=== PATIENT | male | born 1985 | race Caucasian/White ===

== ENCOUNTER 2019-09-09 16:39 | Emergency (ER) | payer MEDICAID ==
[~2019-09-09] VITALS: Ht 180.3 cm; Wt 72.0 kg
--- NOTE | 2019-09-09 16:58 | NUR ---
Pt reports lump on shaft of penis for one year with intermittent pain. Pt sees urology and has no diagnosis at this time. Pt denies penial discharge or blood in urine. Pt reports 10/10 penile pain. Pt resting on gurney connected to NIBP cuff and continous pulse ox monitor. Call light within reach. Pending EDMD to see.
[2019-09-09] MEDS ORDERED: HYDROcodone/APAP 5/325 TABLET ONE (17:45)
[2019-09-09] MEDS ORDERED: HYDROcodone/APAP 5/325 TABLET PO ONE (18:00)
--- NOTE | 2019-09-09 18:50 | NUR ---
Pt ambulates to restroom with steady gait and balance. NADN. No needs expressed. UA cup provided. Pt reports pain is 8/10 at this time.
--- NOTE | 2019-09-09 18:56 | NUR ---
Provided bedside report to JOHN Melgoza. All questions answered. JOHN Melgoza to assume care of pt at this time.
[2019-09-09 19:21] LABS: MICROSCOPIC NOT IND
[2019-09-09 20:17] VITALS: BP 132/74
== END 2019-09-09 20:20 | disposition home or self-care (01) ==
LOC: ED 20:18
DX: R10.32 Left lower quadrant pain (principal); F17.200 Nicotine dependence, unspecified, uncomplicated
CPT/HCPCS: 74176; 81003; 99284